=== PATIENT | female | born 1975 | race Caucasian/White ===

== ENCOUNTER 2019-05-28 20:24 | Emergency (ER) | payer MEDICAID ==
[2019-05-28] MEDS ORDERED: Lidocaine 1% 30 ML SDV INJECT ONE (20:43)
[2019-05-28] MEDS ORDERED: Acetaminophen/HYDROcodone 325-10 MG Tab PO ONE (20:43)
[2019-05-28] MEDS ORDERED: Take Home: Sulfamethoxazole/Trimethoprim 800-160 MG Tab, 2 Tab Pack PO ONE (21:36)
[2019-05-28] MEDS ORDERED: Take Home: Acetaminophen/HYDROcodone 325-10 MG, 5 Tab Pack PO ONE (21:36)
--- NOTE | 2019-06-02 01:56 | EDM.PDOC ---
ED HPI GENERAL MEDICAL PROBLEM - General Chief Complaint: Skin Complaint Stated Complaint: BOIL Time Seen by Provider: 05/28/19 20:40 Source of Information: Reports: Patient History Limitations: Reports: No Limitations - History of Present Illness INITIAL COMMENTS - FREE TEXT/NARRATIVE: Pt. states that she noticed increased swelling and discomfort to her perirectal area. She states that she has been experiencing this for the past several days. She states that she is not experiencing any fever or chills. No chest pain or shortness of breath. No abdominal discomfort. She denies any history of similar lesions in the past. She states that she is unable to sit down. Onset: Today Onset Date: 05/28/19 Location: Reports: Generalized, Other Left Labia Pain Score (Numeric/FACES): 10 - Related Data Allergies Allergy/AdvReac Type Severity Reaction Status Date / Time codeine Allergy Numbness Verified 05/28/19 20:42 prednisone Allergy Headache Verified 05/28/19 20:42 Home Meds: Home Meds Acetaminophen [Tylenol Arthritis Pain] 650 mg PO ASDIRECTED PRN 05/28/19 [ History] Cyclobenzaprine [Flexeril] 5 mg PO TID PRN 05/28/19 [History] DULoxetine [Cymbalta] 20 mg PO DAILY 05/28/19 [History] Escitalopram Oxalate [Lexapro] 20 mg PO DAILY 05/28/19 [History] Fluconazole [Diflucan] 150 mg PO ASDIRECTED 05/28/19 [History] Gabapentin [Neurontin] 400 mg PO TID 05/28/19 [History] Ibuprofen [Advil] 200 - 600 mg PO Q6HR PRN 05/28/19 [History] Iron,Carbonyl/Vit C/Vit B12/Fa [Iron 100 Plus Tablet] 1 each PO DAILY 05/28/19 [ History] Meloxicam [Mobic] 7.5 mg PO ASDIRECTED PRN 05/28/19 [History] Multivitamin/Iron/Folic Acid [Centrum Adults Tablet] 1 each PO DAILY 05/28/19 [ History] NIFEdipine [Adalat cc] 30 mg PO DAILY 05/28/19 [History] Terbinafine [LamISIL] 250 mg PO DAILY 05/28/19 [History] atorvaSTATin [Lipitor] 20 mg PO BEDTIME 05/28/19 [History] glipiZIDE [Glucotrol XL] 10 mg PO DAILY 05/28/19 [History] Past Medical History Cardiovascular History: Reports: High Cholesterol, Hypertension Musculoskeletal History: Reports: Other (See Below) Other Musculoskeletal History: RSD (reflex sympathetic dystrophy) of LUE. Carpal tunnel syndrome. Complex regional pain syndrome type 1 of both upper extremities Neurological History: Reports: Reflex Sympathetic Dystrophy, Other (See Below) Psychiatric History: Reports: Depression Endocrine/Metabolic History: Reports: Diabetes, Type II Social & Family History - Tobacco Use Smoking Status *Q: Current Every Day Smoker Years of Tobacco use: 20 Packs/Tins Daily: 1 - Recreational Drug Use Recreational Drug Use: No ED ROS GENERAL - Review of Systems Review Of Systems: Comprehensive ROS is negative, except as noted in HPI. ED EXAM, GENERAL - Physical Exam Exam: See Below Exam Limited By: No Limitations General Appearance: Alert, WD/WN, No Apparent Distress Rectal (Female) Exam: Perirectal Abscess, Other (Large, approx. 5x7 cm perirectal abscess noted to L of rectum. Extends into the perineal area. Surrounding cellulitis. Erythema and sloughing of some of the superfical skin.) ED GENERAL MEDICAL PROCEDURES - Additional/Other Procedure(s) Other (Free Text) Procedure(s): The abscess was cleansed with chlorhexidine. Perianal area was prepped and draped in usual sterile fashion. A total of 4 ml of 1% lidocaine was used to anesthetize the operative area during the procedure. Using sterile technique, a #11 blade scalpel was used to incise the abscess. A large amount of purulent, foul smelling material was expressed from the incision. Cultures were obtained. a curved Mylene forcep was used to bluntly expand the opening to the abscess and further extend into any loculated collections of pus. approx. 50-60 ml of purulent material was removed from the abscess. It was then packed with 1/2 in. gauze ribbon. Course - Vital Signs Last Recorded V/S: Last Vital Signs Temp 37.1 C 05/28/19 20:59 Pulse 109 H 05/28/19 20:59 Resp 16 05/28/19 20:59 BP 186/96 H 05/28/19 20:59 Pulse Ox 96 05/28/19 20:59 - Orders/Labs/Meds Meds: Medications Discontinued Medications Generic Name Dose Route Start Last Admin Trade Name Hoa PRN Reason Stop Dose Admin Hydrocodone Bitart/Acetaminophen 1 tab 05/28/19 20:43 05/28/19 20:46 Manly 325-10 Mg PO 05/28/19 20:44 1 tab ONETIME ONE Administration Hydrocodone Bitart/Acetaminophen 1 packet 05/28/19 21:36 05/28/19 21:44 Take Home: Acetaminophen/Hydrocodone 325-10mg PO 05/28/19 21:37 1 packet ONETIME ONE Administration Lidocaine HCl 30 ml 05/28/19 20:43 05/28/19 20:48 Xylocaine-Mpf 1% INJECT 05/28/19 20:44 30 ml ONETIME ONE Administration Trimethoprim/Sulfamethoxazole 1 packet 05/28/19 21:36 05/28/19 21:44 Take Home: Sulfameth/Trimet 800-160mg, 2 Pack PO 05/28/19 21:37 1 packet ONETIME ONE Administration Departure - Departure Time of Disposition: 21:57 Disposition: Home, Self-Care 01 Clinical Impression: Lisette-rectal abscess - Discharge Information Instructions: Acetaminophen; Hydrocodone tablets or capsules, Perirectal Abscess, Sulfamethoxazole; Trimethoprim, SMX-TMP tablets Referrals: Thao Horton, [employer] [Primary Care Provider] - Forms: ED Department Discharge Additional Instructions: Bactrim DS 1 twice daily for 10 days Manly 10/325mg 1 every 4-6 hours as needed for pain Ibuprofen 200mg 3 tabs every 6 hours as needed for pain Contact [facility] tomorrow ([phone]) to make an appointment with surgery. I spoke with Dr. Gilmore and he can see you on Wednesday. Return to ER if you have worsening discomfort, lightheadedness, fever or chills that is not eliminated by your medications. Sepsis Event Note - Evaluation Sepsis Screening Result: No Definite Risk - Assessment/Plan Plan: Bactrim DS 1 twice daily for 10 days Manly 10/325mg 1 every 4-6 hours as needed for pain Ibuprofen 200mg 3 tabs every 6 hours as needed for pain Contact [facility] tomorrow ([phone]) to make an appointment with surgery. I spoke with Dr. Gilmore and he can see you on Wednesday. Return to ER if you have worsening discomfort, lightheadedness, fever or chills that is not eliminated by your medications.
== END 2019-05-28 21:57 | disposition home or self-care (01) ==
LOC: VM.ED 20:24
DX: K61.1 Rectal abscess (principal); I10 Essential (primary) hypertension; E11.9 Type 2 diabetes mellitus without complications; E78.00 Pure hypercholesterolemia, unspecified; F32.9 Major depressive disorder, single episode, unspecified; F17.210 Nicotine dependence, cigarettes, uncomplicated; Z79.84 Long term (current) use of oral hypoglycemic drugs; Z79.899 Other long term (current) drug therapy; Z88.5 Allergy status to narcotic agent; Z88.8 Allergy status to other drugs, medicaments and biological substances
CPT/HCPCS: 46040; 87070; 99283-25; A9270-GY; J2001

== ENCOUNTER 2019-06-16 15:56 | Emergency (ER) | payer MEDICAID ==
[2019-06-16] MEDS ORDERED: Sodium Chloride 0.9% 1,000 ML IV SCH ×2 (16:15→17:45)
--- NOTE | 2019-06-16 16:15 | EDM.PDOC ---
ED HPI GENERAL MEDICAL PROBLEM - General Chief Complaint: Diabetic Complaint Stated Complaint: HIGH BL SUGAR Time Seen by Provider: 06/16/19 16:00 Source of Information: Reports: Patient, EMS History Limitations: Reports: No Limitations - History of Present Illness INITIAL COMMENTS - FREE TEXT/NARRATIVE: Patient states today about 1:00 she was feeling very weak and shaky like she does when she has a low blood sugar she ate a pot pie been about 315 she states that shakiness got worse and she checked her sugar and it read 400 on her meter she called EMS upon arrival by EMS she states that she has a tightness in her upper chest that is worse with movement or deep breath and has a burning type pain along with some indigestion. She currently takes metformin and glyburide for her sugar and does not check it on a regular basis she does not know her last A1c she states she is not really compliant with her diet She has no other complaints at this time Onset: Today, Sudden Duration: Hour(s): Quality: Reports: Burning Severity: Mild Worsens with: Reports: Breathing, Movement Associated Symptoms: Reports: No Other Symptoms Chest Pain Score (Numeric/FACES): 10 - Related Data Allergies Allergy/AdvReac Type Severity Reaction Status Date / Time codeine Allergy Numbness Verified 06/16/19 16:09 prednisone Allergy Headache Verified 06/16/19 16:09 Home Meds: Home Meds Acetaminophen [Tylenol Arthritis Pain] 650 mg PO ASDIRECTED PRN 05/28/19 [ History] Cyclobenzaprine [Flexeril] 5 mg PO TID PRN 05/28/19 [History] Escitalopram Oxalate [Lexapro] 20 mg PO DAILY 05/28/19 [History] Gabapentin [Neurontin] 400 mg PO TID 05/28/19 [History] Ibuprofen [Advil] 200 - 600 mg PO Q6HR PRN 05/28/19 [History] Iron,Carbonyl/Vit C/Vit B12/Fa [Iron 100 Plus Tablet] 1 tab PO DAILY 05/28/19 [ History] Meloxicam [Mobic] 7.5 mg PO ASDIRECTED PRN 05/28/19 [History] Multivitamin/Iron/Folic Acid [Centrum Adults Tablet] 1 tab PO DAILY 05/28/19 [ History] NIFEdipine [Adalat cc] 30 mg PO DAILY 05/28/19 [History] Terbinafine [LamISIL] 250 mg PO DAILY 05/28/19 [History] atorvaSTATin [Lipitor] 20 mg PO BEDTIME 05/28/19 [History] glipiZIDE [Glucotrol XL] 10 mg PO DAILY 05/28/19 [History] Past Medical History Cardiovascular History: Reports: High Cholesterol, Hypertension Musculoskeletal History: Reports: Other (See Below) Other Musculoskeletal History: RSD (reflex sympathetic dystrophy) of LUE. Carpal tunnel syndrome. Complex regional pain syndrome type 1 of both upper extremities Neurological History: Reports: Reflex Sympathetic Dystrophy, Other (See Below) Psychiatric History: Reports: Depression Endocrine/Metabolic History: Reports: Diabetes, Type II ED ROS GENERAL - Review of Systems Review Of Systems: See Below Constitutional: Reports: Diaphoresis. Denies: Fever, Chills, Malaise, Weakness , Fatigue HEENT: Reports: No Symptoms Respiratory: Reports: Pleuritic Chest Pain Cardiovascular: Reports: Chest Pain Endocrine: Reports: No Symptoms GI/Abdominal: Reports: No Symptoms : Reports: No Symptoms Musculoskeletal: Reports: No Symptoms Skin: Reports: No Symptoms Neurological: Reports: No Symptoms. Denies: Confusion, Dizziness, Headache, Numbness, Paresthesia, Seizure, Syncope, Tingling, Trouble Speaking, Difficulty Walking, Change in Speech, Gait Disturbance Psychiatric: Reports: No Symptoms Hematologic/Lymphatic: Reports: No Symptoms Immunologic: Reports: No Symptoms ED EXAM GENERAL NO PERIP PULSE - Physical Exam Exam: See Below Exam Limited By: No Limitations General Appearance: Alert, WD/WN, No Apparent Distress Eye Exam: Bilateral Eye: EOMI, PERRL Ears: Normal External Exam, Normal Canal, Hearing Grossly Normal, Normal TMs Nose: Normal Inspection, Normal Mucosa Throat/Mouth: Normal Inspection, Normal Lips, Normal Teeth, Normal Gums, Normal Oropharynx, Normal Voice, No Airway Compromise, Other (Moist mucous membranes) Head: Atraumatic, Normocephalic Neck: Normal Inspection, Supple, Non-Tender, Full Range of Motion Respiratory/Chest: No Respiratory Distress, Lungs Clear, Normal Breath Sounds, No Accessory Muscle Use, Chest Non-Tender Cardiovascular: Normal Peripheral Pulses, Regular Rate, Rhythm, No Edema, No Gallop, No JVD, No Rub, Other (Noted systolic aortic murmur 3 out of 6 patient states she has had for years). No: No Murmur GI/Abdominal: Normal Bowel Sounds, Soft, Non-Tender, No Organomegaly Back Exam: Normal Inspection, Full Range of Motion Extremities: Normal Inspection, Normal Range of Motion, Non-Tender, No Pedal Edema Neurological: Alert, Oriented, CN II-XII Intact, Normal Cognition, No Motor/ Sensory Deficits Psychiatric: Normal Affect, Normal Mood Skin Exam: Warm, Dry, Intact, Normal Color, No Rash Lymphatic: No Adenopathy Course - Vital Signs Text/Narrative:: CBC BMP urinalysis EKG troponin serum ketones although it is a send out CBC within normal limits EKG normal sinus rhythm troponin is negative patient was given 2 L normal saline spoke with primary care provider Fer who works with Thao Horton states that she can be followed up Wednesday in clinic he agrees with starting metformin p.o. until further lab work and decision comes back patient can be treated outpatient Patient states she refuses to take metformin she is taking it in the past and did not like it states she will just follow-up with her primary care provider Wednesday Patient given 2 L normal saline 1 L lactated Ringer's calculated corrected anion gap 17 flu is negative urine C&S was sent out recheck states she is feeling better Patient rechecked blood sugar level has came down anion gap is 15 patient states she feels a whole lot better and is okay with going home and following up as outpatient gives verbal understanding of need for follow-up and drinking plenty of fluids and taking all medications as directed Last Recorded V/S: Last Vital Signs Temp 37.1 C 06/16/19 19:29 Pulse 78 06/16/19 19:29 Resp 16 06/16/19 19:29 BP 130/50 L 06/16/19 19:29 Pulse Ox 98 06/16/19 19:29 - Orders/Labs/Meds Orders: Active Orders 24 hr Category Date Time Status EKG 12 Lead [EKG Documentation Completion] [RC] STAT Care 06/16/19 16:08 Active CULTURE URINE [RM] Stat Lab 06/16/19 16:14 Received Serum Ketones [B-HYDROXYBUTYRATE] [REF] Stat Lab 06/16/19 16:20 Received Lactated Ringers [Ringers, Lactated] 1,000 ml Med 06/16/19 20:00 Active IV ASDIRECTED Sodium Chloride 0.9% [Normal Saline] 1,000 ml Med 06/16/19 16:15 Active IV ASDIRECTED Sodium Chloride 0.9% [Normal Saline] 1,000 ml Med 06/16/19 17:45 Active IV ASDIRECTED Medication Orders Sodium Chloride (Normal Saline) 1,000 mls @ 1,000 mls/hr IV ASDIRECTED MICHAEL Last Admin: 06/16/19 16:19 Dose: 1,000 mls/hr Sodium Chloride (Normal Saline) 1,000 mls @ 1,000 mls/hr IV ASDIRECTED MICHAEL Last Admin: 06/16/19 17:49 Dose: 1,000 mls/hr Lactated Ringer's (Ringers, Lactated) 1,000 mls @ 1,000 mls/hr IV ASDIRECTED MICHAEL Last Admin: 06/16/19 19:57 Dose: 1,000 mls/hr Labs: Laboratory Tests 06/16/19 06/16/19 06/16/19 Range/Units 16:04 16:14 16:20 WBC 11.1 H (4.0-10.0) x10^3/uL RBC 5.57 H (4.00-5.50) x10^6/uL Hgb 10.9 L (12.0-16.0) g/dL Hct 34.9 (33.0-47.0) % MCV 62.7 L (78.0-93.0) fL MCH 19.6 L (26.0-32.0) pg MCHC 31.2 L (32.0-36.0) g/dL RDW Coeff of Dennis 18.6 H (10.0-15.0) % Plt Count 417 H (130-400) x10^3/uL Neut % (Auto) 73.4 (50.0-80.0) % Lymph % (Auto) 18.5 L (25.0-50.0) % [place] % (Auto) 5.9 (2.0-11.0) % Eos % (Auto) 1.7 (0.0-4.0) % Baso % (Auto) 0.5 (0.2-1.2) % Sodium (136-145) mmol/L Potassium (3.5-5.1) mmol/L Chloride (98-107) mmol/L Carbon Dioxide (21-32) mmol/L Anion Gap (10-20) mmol/L BUN (7-18) mg/dL Creatinine (0.55-1.02) mg/dL Est Cr Clr Drug Dosing mL/min Estimated GFR (MDRD) Glucose (74-106) mg/dL POC Glucose 437 H* (74-106) mg/dL Hemoglobin A1c (4.5-6.2) % Calcium (8.5-10.1) mg/dL Troponin I (<=0.056) ng/mL Urine Color Dark yellow H (YELLOW) Urine Appearance Cloudy H (CLEAR) Urine pH 5.5 (5.0-8.0) Ur Specific [place] 1.015 Urine Protein Negative (NEGATIVE) mg/dL Urine Glucose (UA) 500 H (NEGATIVE) mg/dL Urine Ketones Negative (NEGATIVE) mg/dL Urine Occult Blood Trace-lysed H (NEGATIVE) Urine Nitrite Negative (NEGATIVE) Urine Bilirubin Negative (NEGATIVE) Urine Urobilinogen 0.2 (0.2) EU/dL Ur Leukocyte Esterase Negative (NEGATIVE) Urine RBC 0-5 (NOT SEEN) /HPF Urine WBC 0-5 (NOT SEEN) /HPF Ur Squamous Epith Cells Moderate H (NEGATIVE) /HPF Urine Bacteria Few H (NEGATIVE) /HPF Hyaline Casts Few H (NEGATIVE) /HPF Granular Casts Few H (NEGATIVE) /HPF Urine Mucus Few H (NEGATIVE) /LPF 06/16/19 06/16/19 06/16/19 Range/Units 16:20 16:20 16:20 WBC (4.0-10.0) x10^3/uL RBC (4.00-5.50) x10^6/uL Hgb (12.0-16.0) g/dL Hct (33.0-47.0) % MCV (78.0-93.0) fL MCH (26.0-32.0) pg MCHC (32.0-36.0) g/dL RDW Coeff of Dennis (10.0-15.0) % Plt Count (130-400) x10^3/uL Neut % (Auto) (50.0-80.0) % Lymph % (Auto) (25.0-50.0) % [place] % (Auto) (2.0-11.0) % Eos % (Auto) (0.0-4.0) % Baso % (Auto) (0.2-1.2) % Sodium 132 L (136-145) mmol/L Potassium 4.1 (3.5-5.1) mmol/L Chloride 99 (98-107) mmol/L Carbon Dioxide 16 L (21-32) mmol/L Anion Gap 21.1 H (10-20) mmol/L BUN 15 (7-18) mg/dL Creatinine 1.1 H (0.55-1.02) mg/dL Est Cr Clr Drug Dosing 68.92 mL/min Estimated GFR (MDRD) 54 Glucose 459 H* (74-106) mg/dL POC Glucose (74-106) mg/dL Hemoglobin A1c 9.9 H (4.5-6.2) % Calcium 7.8 L (8.5-10.1) mg/dL Troponin I < 0.017 (<=0.056) ng/mL Urine Color (YELLOW) Urine Appearance (CLEAR) Urine pH (5.0-8.0) Ur Specific [place] Urine Protein (NEGATIVE) mg/dL Urine Glucose (UA) (NEGATIVE) mg/dL Urine Ketones (NEGATIVE) mg/dL Urine Occult Blood (NEGATIVE) Urine Nitrite (NEGATIVE) Urine Bilirubin (NEGATIVE) Urine Urobilinogen (0.2) EU/dL Ur Leukocyte Esterase (NEGATIVE) Urine RBC (NOT SEEN) /HPF Urine WBC (NOT SEEN) /HPF Ur Squamous Epith Cells (NEGATIVE) /HPF Urine Bacteria (NEGATIVE) /HPF Hyaline Casts (NEGATIVE) /HPF Granular Casts (NEGATIVE) /HPF Urine Mucus (NEGATIVE) /LPF 06/16/19 06/16/19 Range/Units 19:48 21:05 WBC (4.0-10.0) x10^3/uL RBC (4.00-5.50) x10^6/uL Hgb (12.0-16.0) g/dL Hct (33.0-47.0) % MCV (78.0-93.0) fL MCH (26.0-32.0) pg MCHC (32.0-36.0) g/dL RDW Coeff of Dennis (10.0-15.0) % Plt Count (130-400) x10^3/uL Neut % (Auto) (50.0-80.0) % Lymph % (Auto) (25.0-50.0) % [place] % (Auto) (2.0-11.0) % Eos % (Auto) (0.0-4.0) % Baso % (Auto) (0.2-1.2) % Sodium 138 (136-145) mmol/L Potassium 4.0 (3.5-5.1) mmol/L Chloride 107 (98-107) mmol/L Carbon Dioxide 20 L (21-32) mmol/L Anion Gap 15.0 (10-20) mmol/L BUN 11 (7-18) mg/dL Creatinine 0.8 (0.55-1.02) mg/dL Est Cr Clr Drug Dosing 94.76 mL/min Estimated GFR (MDRD) > 60 Glucose 291 H (74-106) mg/dL POC Glucose 341 H (74-106) mg/dL Hemoglobin A1c (4.5-6.2) % Calcium 7.6 L (8.5-10.1) mg/dL Troponin I < 0.017 (<=0.056) ng/mL Urine Color (YELLOW) Urine Appearance (CLEAR) Urine pH (5.0-8.0) Ur Specific [place] Urine Protein (NEGATIVE) mg/dL Urine Glucose (UA) (NEGATIVE) mg/dL Urine Ketones (NEGATIVE) mg/dL Urine Occult Blood (NEGATIVE) Urine Nitrite (NEGATIVE) Urine Bilirubin (NEGATIVE) Urine Urobilinogen (0.2) EU/dL Ur Leukocyte Esterase (NEGATIVE) Urine RBC (NOT SEEN) /HPF Urine WBC (NOT SEEN) /HPF Ur Squamous Epith Cells (NEGATIVE) /HPF Urine Bacteria (NEGATIVE) /HPF Hyaline Casts (NEGATIVE) /HPF Granular Casts (NEGATIVE) /HPF Urine Mucus (NEGATIVE) /LPF Meds: Medications Generic Name Dose Route Start Last Admin Trade Name Freq PRN Reason Stop Dose Admin Sodium Chloride 1,000 mls @ 1,000 mls/hr 06/16/19 16:15 06/16/19 16:19 Normal Saline IV 1,000 mls/hr ASDIRECTED MICHAEL Administration Sodium Chloride 1,000 mls @ 1,000 mls/hr 06/16/19 17:45 06/16/19 17:49 Normal Saline IV 1,000 mls/hr ASDIRECTED MICHAEL Administration Lactated Ringer's 1,000 mls @ 1,000 mls/hr 06/16/19 20:00 06/16/19 19:57 Ringers, Lactated IV 1,000 mls/hr ASDIRECTED MICHAEL Administration Discontinued Medications Generic Name Dose Route Start Last Admin Trade Name Hoa PRN Reason Stop Dose Admin Al Hydroxide/Mg Hydroxide 30 ml 06/16/19 18:42 06/16/19 18:46 Gi Cocktail PO 06/16/19 18:43 30 ml ONETIME ONE Administration Metformin HCl 500 mg 06/16/19 17:47 06/16/19 18:47 Glucophage PO 06/16/19 17:48 Not Given ONETIME ONE Departure - Departure Time of Disposition: 21:45 Disposition: Home, Self-Care 01 Condition: Good Clinical Impression: Diabetes type 2, uncontrolled - Discharge Information *PRESCRIPTION DRUG MONITORING PROGRAM REVIEWED*: No *COPY OF PRESCRIPTION DRUG MONITORING REPORT IN PATIENT ZEKE: No Instructions: Type 2 Diabetes Mellitus, Diagnosis, Adult, [id number] Referrals: Thao Horton NP [Primary Care Provider] - Forms: ED Department Discharge Additional Instructions: Make sure you drink plenty of water at least half a gallon a day take all your medications as directed follow-up in clinic Wednesday To the clinic if anything changes or gets worse Sepsis Event Note - Evaluation Sepsis Screening Result: No Definite Risk - Focused Exam Vital Signs: Vital Signs Temp Pulse Resp BP Pulse Ox 06/16/19 19:29 37.1 C 78 16 130/50 L 98 06/16/19 17:28 36.9 C 80 16 124/53 L 97 06/16/19 16:06 36.6 C 83 24 H 131/62 96 Date Exam was Performed: 06/16/19 Time Exam was Performed: 21:44 - Problem List & Annotations (1) Diabetes type 2, uncontrolled SNOMED Code(s): 852756524, 800450611 Code(s): E11.65 - TYPE 2 DIABETES MELLITUS WITH HYPERGLYCEMIA Status: Acute Current Visit: Yes - My Orders Last 24 Hours: My Active Orders 06/16/19 16:08 EKG 12 Lead [EKG Documentation Completion] [RC] STAT 06/16/19 16:14 CULTURE URINE [RM] Stat 06/16/19 16:15 Sodium Chloride 0.9% [Normal Saline] 1,000 ml IV ASDIRECTED 06/16/19 16:20 Serum Ketones [B-HYDROXYBUTYRATE] [REF] Stat 06/16/19 17:45 Sodium Chloride 0.9% [Normal Saline] 1,000 ml IV ASDIRECTED 06/16/19 20:00 Lactated Ringers [Ringers, Lactated] 1,000 ml IV ASDIRECTED - Assessment/Plan Last 24 Hours: My Active Orders 06/16/19 16:08 EKG 12 Lead [EKG Documentation Completion] [RC] STAT 06/16/19 16:14 CULTURE URINE [RM] Stat 06/16/19 16:15 Sodium Chloride 0.9% [Normal Saline] 1,000 ml IV ASDIRECTED 06/16/19 16:20 Serum Ketones [B-HYDROXYBUTYRATE] [REF] Stat 06/16/19 17:45 Sodium Chloride 0.9% [Normal Saline] 1,000 ml IV ASDIRECTED 06/16/19 20:00 Lactated Ringers [Ringers, Lactated] 1,000 ml IV ASDIRECTED
[2019-06-16 16:45] LABS: HEMOGLOBIN A1C 9.9 % (4.5-6.2)
[2019-06-16] MEDS ORDERED: metFORMIN 500 MG Tab PO ONE (17:47)
[2019-06-16 18:08] LABS: ANION GAP 21.1 mmol/L (10-20)
[2019-06-16] MEDS ORDERED: GI Cocktail Oral Solution 30 ML PO ONE (18:42)
[2019-06-16] MEDS ORDERED: Lactated Ringers 1,000 ML IV SCH (20:00)
[2019-06-16 21:38] LABS: CHLORIDE,CL 107 mmol/L (98-107); SODIUM,NA 138 mmol/L (136-145)
== END 2019-06-16 21:57 | disposition home or self-care (01) ==
LOC: VM.ED 15:56
DX: E11.65 Type 2 diabetes mellitus with hyperglycemia (principal); I10 Essential (primary) hypertension; E78.00 Pure hypercholesterolemia, unspecified; F32.9 Major depressive disorder, single episode, unspecified; Z88.5 Allergy status to narcotic agent; Z88.8 Allergy status to other drugs, medicaments and biological substances; Z79.84 Long term (current) use of oral hypoglycemic drugs; Z79.899 Other long term (current) drug therapy
CPT/HCPCS: 36415; 80048; 81001; 82010; 82962; 83036; 84484; 85025; 87086; 87804; 87804-59; 93005; 96360; 96361; 99285-25; A9270-GY; J7030; J7120

== ENCOUNTER 2021-09-28 16:12 | Emergency (ER) | payer MEDICAID ==
[2021-09-28] MEDS ORDERED: Take Home: Doxycycline 100 MG Tab, 4 Tab Pack PO ONE (16:34)
[2021-09-28] MEDS ORDERED: Take Home: traMADol 50 MG, 4 Tab Pack PO ONE (16:35)
== END 2021-09-28 16:44 | disposition home or self-care (01) ==
LOC: VM.ED 16:12
DX: L03.031 Cellulitis of right toe (principal); E11.9 Type 2 diabetes mellitus without complications; E78.00 Pure hypercholesterolemia, unspecified; I10 Essential (primary) hypertension; Z72.0 Tobacco use; Z88.5 Allergy status to narcotic agent; Z88.8 Allergy status to other drugs, medicaments and biological substances; Z79.899 Other long term (current) drug therapy
CPT/HCPCS: 99282; 99284; A9270-GY

== ENCOUNTER 2023-11-17 18:36 | Emergency (ER) | payer MEDICAID ==
[2023-11-17 19:05] LABS: BASOPHILS PERCENT AUTO 0.3 % (0.2-1.2); EOSINOPHILS ABSOLUTE AUTO 0.1 x10^3/uL (0.0-0.5); EOSINOPHILS PERCENT AUTO 1.3 % (0.0-4.0); HEMATOCRIT 32.3 % (33.0-47.0); IMMATURE GRAN ABSOLUTE AUTO 0.01 x10^3/uL (0.00-0.07); LYMPHOCYTES ABSOLUTE AUTO 1.2 x10^3/uL (1.0-4.8); LYMPHOCYTES PERCENT AUTO 15.1 % (25.0-50.0); MEAN CORPUSCULAR HEMOGLOBIN 22.5 pg (26.0-32.0); MEAN CORPUSCULAR VOLUME 72.6 fL (78.0-93.0); MONOCYTES ABSOLUTE AUTO 0.6 x10^3/uL (0.0-0.8); MONOCYTES PERCENT AUTO 7.4 % (2.0-11.0); NEUTROPHILS ABSOLUTE AUTO 5.9 x10^3/uL (1.8-7.7); NEUTROPHILS PERCENT AUTO 75.8 % (50.0-80.0); PLATELET COUNT,PLT 488 x10^3/uL (130-400); RED BLOOD CELL COUNT 4.45 x10^6/uL (4.00-5.50); WHITE BLOOD CELL COUNT,WBC 7.8 x10^3/uL (4.0-10.0)
[2023-11-17] MEDS: Sodium Chloride 0.9% 1,000 ML IV ONE (19:10)
[2023-11-17 19:11] LABS: CREATININE 0.8 mg/dL (0.55-1.02); EST CRCL DRUG DOSING (CG) 87.7 mL/min; POTASSIUM,K 4.6 mmol/L (3.5-5.1)
[2023-11-17 19:12] LABS: ANION GAP 14.6 mmol/L (5-15)
[2023-11-17 19:15] LABS: D-DIMER QUANTITATIVE 2.4 mg/LFEU (<=0.58)
[2023-11-17] MEDS: HYDROmorphone 1 MG/ML Syringe IVPUSH ONE (19:20)
[2023-11-17 19:32] LABS: INR 1.8 (0.9-1.1); PTT,PARTIAL THROMBOPLSTIN TIME 43.7 SEC (21.9-33.8)
[2023-11-17] MEDS: Iopamidol 755 Mg/ML 100 ML Bottle IVPUSH ONE (20:16)
== END 2023-11-17 23:15 | disposition home or self-care (01) ==
LOC: VM.ED 18:36 → SUPCPDRO 18:36 → VM.ED 23:15
DX: R07.89 Other chest pain (principal); I10 Essential (primary) hypertension; E78.00 Pure hypercholesterolemia, unspecified; E11.9 Type 2 diabetes mellitus without complications; Z88.6 Allergy status to analgesic agent; Z88.8 Allergy status to other drugs, medicaments and biological substances; Z79.899 Other long term (current) drug therapy
CPT/HCPCS: 36415; 71275; 80048; 84484; 85025; 85379; 85610; 85730; 93005; 96361; 96374; 99285; J1170; J7030; Q9967

== ENCOUNTER 2023-11-21 21:10 | Emergency (ER) | payer MEDICAID ==
[2023-11-21] MEDS: Sulfamethoxazole/Trimethoprim 800-160 MG Tab PO ONE (21:39)
[2023-11-21] MEDS: Cephalexin 500 MG Cap PO ONE (21:39)
== END 2023-11-21 21:55 | disposition home or self-care (01) ==
LOC: VM.ED 21:10
DX: L03.032 Cellulitis of left toe (principal); L89.899 Pressure ulcer of other site, unspecified stage; I10 Essential (primary) hypertension; E78.00 Pure hypercholesterolemia, unspecified; E11.9 Type 2 diabetes mellitus without complications; Z79.899 Other long term (current) drug therapy; Z88.5 Allergy status to narcotic agent; Z88.8 Allergy status to other drugs, medicaments and biological substances
CPT/HCPCS: 99283; 99284; A9270

== ENCOUNTER 2024-01-04 21:20 | Emergency (ER) | payer MEDICAID | END 2024-01-04 22:40 | disposition home or self-care (01) | LOC: VM.ED 21:20 | DX: S20.212A Contusion of left front wall of thorax, initial encounter (principal); I10 Essential (primary) hypertension; E78.00 Pure hypercholesterolemia, unspecified; E11.9 Type 2 diabetes mellitus without complications; Z79.899 Other long term (current) drug therapy; Z79.84 Long term (current) use of oral hypoglycemic drugs; Z88.6 Allergy status to analgesic agent; Z88.5 Allergy status to narcotic agent; W01.190A Fall on same level from slipping, tripping and stumbling with subsequent striking against furniture, initial encounter; Y92.009 Unspecified place in unspecified non-institutional (private) residence as the place of occurrence of the external cause | CPT/HCPCS: 73110-LT; 99283 ==

== ENCOUNTER 2024-01-06 19:34 | Emergency (ER) | payer MEDICAID ==
[2024-01-06 20:38] LABS: INR 1.3 (0.9-1.1); PROTHROMBIN TIME 13.3 SEC (8.9-11.5)
== END 2024-01-06 20:49 | disposition home or self-care (01) ==
LOC: VM.ED 19:34
DX: R79.1 Abnormal coagulation profile (principal); Z95.2 Presence of prosthetic heart valve; I10 Essential (primary) hypertension; E78.00 Pure hypercholesterolemia, unspecified; E11.9 Type 2 diabetes mellitus without complications; F17.210 Nicotine dependence, cigarettes, uncomplicated; Z79.899 Other long term (current) drug therapy; Z86.73 Personal history of transient ischemic attack (TIA), and cerebral infarction without residual deficits; Z79.01 Long term (current) use of anticoagulants; Z79.84 Long term (current) use of oral hypoglycemic drugs; Z88.5 Allergy status to narcotic agent; Z88.4 Allergy status to anesthetic agent; Z88.8 Allergy status to other drugs, medicaments and biological substances
CPT/HCPCS: 36415; 85610; 99283

== ENCOUNTER 2024-07-11 15:51 | Emergency (ER) | payer MEDICAID ==
[2024-07-11] MEDS: Lactated Ringers 1,000 ML IV ONE (16:25)
[2024-07-11 16:26] LABS: BASOPHILS PERCENT AUTO 0.1 % (0.2-1.2); HEMOGLOBIN 10.3 g/dL (12.0-16.0); IMMATURE GRAN ABSOLUTE AUTO 0.03 x10^3/uL (0.00-0.07); LYMPHOCYTES ABSOLUTE AUTO 0.4 x10^3/uL (1.0-4.8); MEAN CORPUSCULAR HEMOGLOBIN 23.2 pg (26.0-32.0); MEAN CORPUSCULAR HGB CONC 32.2 g/dL (32.0-36.0); MEAN CORPUSCULAR VOLUME 72.1 fL (78.0-93.0); MONOCYTES ABSOLUTE AUTO 0.4 x10^3/uL (0.0-0.8); MONOCYTES PERCENT AUTO 4.3 % (2.0-11.0); NEUTROPHILS ABSOLUTE AUTO 7.5 x10^3/uL (1.8-7.7); PLATELET COUNT,PLT 204 x10^3/uL (130-400); RED BLOOD CELL COUNT 4.44 x10^6/uL (4.00-5.50); WHITE BLOOD CELL COUNT,WBC 8.3 x10^3/uL (4.0-10.0)
[2024-07-11 16:34] LABS: LYMPHOCYTES PERCENT AUTO 5.2 % (25.0-50.0)
[2024-07-11 16:45] LABS: A/G RATIO 0.69; ALANINE AMINOTRANSFERASE,ALT 41 U/L (14-59); ALBUMIN 2.7 g/dL (3.4-5.0); ALKALINE PHOSPHATASE 186 U/L (46-116); ASPARTATE AMNIOTRANSFERASE,AST 24 U/L (15-37); BILIRUBIN TOTAL 1.9 mg/dL (0.2-1.0); BLOOD UREA NITROGEN,BUN 21 mg/dL (7-18); CALCIUM 8.4 mg/dL (8.5-10.1); CARBON DIOXIDE,CO2 23 mmol/L (21-32); CHLORIDE,CL 95 mmol/L (98-107); CREATINE KINASE,CK 99 U/L (26-192); CREATININE 1.1 mg/dL (0.55-1.02); GLUCOSE RANDOM 183 mg/dL (70-99); POTASSIUM,K 3.6 mmol/L (3.5-5.1); PROTEIN TOTAL,TP 6.6 g/dL (6.4-8.2); SODIUM,NA 131 mmol/L (136-145)
[2024-07-11 16:49] LABS: ANION GAP 16.6 mmol/L (5-15); ESTIMATED GFR 62 mL/min (>=60); ETHANOL BLOOD MEDICAL < 3 mg/dL (0-3)
[2024-07-11 16:57] LABS: C-REACTIVE PROTEIN 38.82 mg/dL (<=0.50)
[2024-07-11] MEDS: Magnesium Sulf/Wat 4 GM/100 mL 4 GM in Premix Bag 1 BAG IV ONE (17:03)
[2024-07-11] MEDS: cefTRIAXone 2 GM Vial IVPUSH ONE (17:12)
[2024-07-11] MEDS: Sodium Chloride 0.9% 1,000 ML IV ONE ×2 (17:15→20:32)
[2024-07-11] MEDS: VANCOmycin 1.5 GM/300 ML 1.5 GM in Premix Bag 1 BAG IV ONE (17:18)
[2024-07-11 18:17] LABS: BILIRUBIN,URINE NEGATIVE (NEGATIVE); COLOR,URINE DARK YELLOW (YELLOW); GLUCOSE,URINE NEGATIVE (NEGATIVE); KETONES,URINE NEGATIVE (NEGATIVE); LEUKOCYTE ESTERASE,URINE NEGATIVE (NEGATIVE); NITRITE,URINE NEGATIVE (NEGATIVE); OCCULT BLOOD,URINE MODERATE (NEGATIVE); PH,URINE 5.5 (5.0-8.0); PROTEIN,URINE 100 mg/dL (NEGATIVE); UROBILINOGEN,URINE 0.2 EU/dL (0.2)
[2024-07-11 18:20] LABS: AMPHETAMINES SCREEN, URINE POSITIVE (NEGATIVE); BARBITURATE SCREEN,URINE NEGATIVE (NEGATIVE); BENZODIAZEPINES SCREEN,URINE NEGATIVE (NEGATIVE); BUPRENORPHINE SCREEN,URINE NEGATIVE (NEGATIVE); COCAINE METABOLITES,URINE NEGATIVE (NEGATIVE); METHADONE SCREEN, URINE NEGATIVE (NEGATIVE); METHAMPHETAMINE SCREEN, URINE POSITIVE (NEGATIVE); OXYCODONE SCREEN,URINE NEGATIVE (NEGATIVE); PCP SCREEN,URINE NEGATIVE (NEGATIVE); THC SCREEN,URINE 50 NG/ML NEGATIVE (NEGATIVE)
[2024-07-11 18:21] LABS: APPEARANCE,URINE SLIGHTLY CLOUDY (CLEAR)
[2024-07-11 18:23] LABS: AMORPHOUS SEDIMENT,URINE MODERATE; BACTERIA,URINE FEW /HPF (NOT SEEN); GRANULAR CASTS,URINE FEW; HYALINE CASTS,URINE FEW; MUCUS,URINE FEW /LPF (NOT SEEN); RBC,URINE 20-30 /HPF (NOT SEEN); SQUAMOUS EPITHELIAL CELLS,UR FEW /HPF (NOT SEEN); WBC,URINE 0-5 /HPF (NOT SEEN)
[2024-07-11] MEDS: Iopamidol 755 Mg/ML 100 ML Bottle IVPUSH ONE (18:24)
[2024-07-11] MEDS: Ketorolac 30 MG/ML SDV IVPUSH ONE (18:53)
[2024-07-11] MEDS: Acetaminophen 650 MG Supp RECTAL ONE (19:27)
== END 2024-07-11 20:16 | disposition short-term general hospital (02) ==
LOC: VM.ED 15:51
DX: A41.9 Sepsis, unspecified organism (principal); M19.072 Primary osteoarthritis, left ankle and foot; E83.42 Hypomagnesemia; F15.10 Other stimulant abuse, uncomplicated; R79.89 Other specified abnormal findings of blood chemistry; R94.31 Abnormal electrocardiogram [ECG] [EKG]; I10 Essential (primary) hypertension; E78.00 Pure hypercholesterolemia, unspecified; E11.9 Type 2 diabetes mellitus without complications; Z86.73 Personal history of transient ischemic attack (TIA), and cerebral infarction without residual deficits; Z79.899 Other long term (current) drug therapy; Z79.84 Long term (current) use of oral hypoglycemic drugs; Z88.5 Allergy status to narcotic agent; Z88.8 Allergy status to other drugs, medicaments and biological substances; Z88.6 Allergy status to analgesic agent
CPT/HCPCS: 36415; 51702; 70450; 71045; 71275; 73660-LT; 80053; 80305-QW; 80307; 81001; 82550; 83605; 83735; 84484; 85025; 85379; 86140; 87040; 87077; 87147; 87186; 87428-QW; 93010; 96361; 96365; 96366; 96368; 96375; 99284; 99285-25; A9270-GY; J0696; J1885; J3372; J3475; J7030; J7120; Q9967